=== PATIENT | female | born 1975 | race Caucasian/White ===

== ENCOUNTER 2017-02-16 13:58 | Outpatient (CLI) | payer OTHER | END 2017-02-16 13:59 | disposition home or self-care (01) | DX: G47.30 Sleep apnea, unspecified (principal); G47.8 Other sleep disorders; R06.83 Snoring; G47.10 Hypersomnia, unspecified ==

== ENCOUNTER 2017-03-11 06:50 | Outpatient (CLI) | payer OTHER | END 2017-03-11 06:51 | disposition home or self-care (01) | LOC: SC 06:50 | PROVIDERS: ATTEND Internal Medicine Pulmonary Disease | DX: G47.33 Obstructive sleep apnea (adult) (pediatric) (principal); Z68.36 Body mass index [BMI] 36.0-36.9, adult | CPT/HCPCS: 95810 ==

== ENCOUNTER 2017-03-29 09:24 | Outpatient (CLI) | payer OTHER | END 2017-03-29 09:25 | disposition home or self-care (01) | DX: G47.33 Obstructive sleep apnea (adult) (pediatric) (principal) ==

== ENCOUNTER 2017-04-15 07:00 | Outpatient (CLI) | payer OTHER | END 2017-04-15 07:01 | disposition home or self-care (01) | LOC: SC 07:00 | PROVIDERS: ATTEND Internal Medicine Pulmonary Disease | DX: G47.33 Obstructive sleep apnea (adult) (pediatric) (principal); G47.61 Periodic limb movement disorder; Z68.36 Body mass index [BMI] 36.0-36.9, adult | CPT/HCPCS: 95811 ==

== ENCOUNTER 2017-04-27 14:44 | Outpatient (CLI) | payer OTHER | END 2017-04-27 14:45 | disposition home or self-care (01) | LOC: SC 14:44 | PROVIDERS: ATTEND Nurse Practitioner Family | DX: G47.33 Obstructive sleep apnea (adult) (pediatric) (principal); G47.61 Periodic limb movement disorder | CPT/HCPCS: 99212; 99214 ==

== ENCOUNTER 2017-06-09 15:03 | Outpatient (CLI) | payer OTHER | END 2017-06-09 15:04 | disposition home or self-care (01) | LOC: SC 15:03 | PROVIDERS: ATTEND Nurse Practitioner Family | DX: G47.33 Obstructive sleep apnea (adult) (pediatric) (principal); G47.23 Circadian rhythm sleep disorder, irregular sleep wake type | CPT/HCPCS: 99212; 99214 ==

== ENCOUNTER 2017-07-28 13:46 | Outpatient (CLI) | payer OTHER | END 2017-07-28 13:47 | disposition home or self-care (01) | LOC: SC 13:46 | PROVIDERS: ATTEND Nurse Practitioner Family | DX: G47.33 Obstructive sleep apnea (adult) (pediatric) (principal) | CPT/HCPCS: 99212; 99214 ==

== ENCOUNTER 2017-10-05 14:11 | Outpatient (CLI) | payer OTHER | END 2017-10-05 14:12 | disposition home or self-care (01) | LOC: SC 14:11 | PROVIDERS: ATTEND Nurse Practitioner Family | DX: G47.33 Obstructive sleep apnea (adult) (pediatric) (principal); G47.23 Circadian rhythm sleep disorder, irregular sleep wake type | CPT/HCPCS: 99212; 99214 ==

== ENCOUNTER 2019-12-05 10:36 | Outpatient (CLI) | payer OTHER ==
--- NOTE | 2019-12-05 13:10 | Ultrasound Report ---
Reason: ABNORMAL MAMMO Procedure Date: 12/05/2019 Accession Number: [id number] / [id number] Procedure: US - Breast Unilateral Limited CPT Code: Final Report FULL RESULT: EXAM: Diagnostic Dig RT, Breast Unilateral Limited DATE: 12/05/2019 11:51 AM CLINICAL HISTORY: Follow-up abnormal mammogram 03/06/2019 and 02/10/2019. Patient has a history of bilateral reduction mammoplasty. COMPARISON: 06/07/2018 mammogram and 03/06/2019 breast ultrasound. Imaging performed at the [facility] in [place] MAMMOGRAM: TECHNIQUE: (B) - Bilateral CC and MLO views were obtained. PARENCHYMAL PATTERN: (A) - The breasts demonstrate scattered fibroglandular densities bilaterally. FINDINGS: No significant interval change. Previously seen asymmetric density mid posterior right breast anterior to the chest wall in the retroareolar plane is again best seen on the CC projection, stable appearance. There are no suspicious masses, calcifications, or areas of distortion. RIGHT BREAST ULTRASOUND: TECHNIQUE: Real time scanning by the underwriting technician with saved static images reviewed. FINDINGS: An area of probable focal scarring 7:00 position 8 cm from the nipple anterior to the chest wall has not changed in ultrasound appearance since 03/06/2019. IMPRESSION: Benign findings. BI-RADS category 2. Right breast RECOMMENDATION: (ANNUAL) - Recommend routine annual screening mammography. Return to routine screening mammography in 6 months. BI-RADS CATEGORY: (2) - Benign Findings. STANDARD QUALIFYING STATEMENTS: 1. This examination was not reviewed with the aid of Computer-Aided Detection (CAD). 2. A negative or benign imaging report should not preclude biopsy if clinically suspicious findings are present. 3. Dense breasts may obscure an underlying neoplasm. 4. This examination was reviewed with the aid of 3D breast imaging (tomosynthesis).
== END 2019-12-05 10:37 | disposition home or self-care (01) ==
LOC: DI 10:36
PROVIDERS: ATTEND General Practice
DX: R92.8 Other abnormal and inconclusive findings on diagnostic imaging of breast (principal)
CPT/HCPCS: 76642

== ENCOUNTER 2022-01-29 08:59 | Outpatient (CLI) | payer OTHER | END 2022-01-29 09:00 | disposition home or self-care (01) | LOC: DI 08:59 | PROVIDERS: ATTEND Physician Assistant | DX: F45.22 Body dysmorphic disorder (principal); I51.7 Cardiomegaly | CPT/HCPCS: 93306 ==

== ENCOUNTER 2022-02-27 10:52 | Outpatient (CLI) | payer OTHER ==
--- NOTE | 2022-02-27 11:51 | SLEEP CARE CONSULTATION ---
Information from patient questionnaire entered by Broderick Maier MA. I have reviewed and concur with the information entered by Broderick Maier MA. This document represents the service I personally performed and the decisions made by , Hanna Rowland ARNP. History of Present Illness Service Date and Time: 02/27/2022 1052 Reason for Visit: New patient (LAST SEEN 2017, ON CPAP, ) Chief Complaint: reports: Unrefreshed sleep, Snoring, Excessive daytime sleepin ess, Observed pauses in breathing, Fatigue, Frequent awakenings at night Date of Onset: life Usual bedtime: no regular bedtime Time it takes to fall asleep: not sure Snores at night: Yes Observed to quit breathing while asleep: Yes Sleeps alone due to snoring: Yes Number of times waking at night: 3-4 times Reasons for waking at night: reports: Other (unknown reason) Toss, Turn, or Twitch while sleeping: Yes Recalls having dreams: Yes Usually gets out of bed at: varies Feels refreshed in the morning: No Morning headache: No Sleepy or fatigued during the day: Yes Ever fallen asleep while driving: Yes Takes day naps: Yes Dreams during day naps: Yes Prior sleep studies: Yes Year and Where: 2016 [facility] Type of Sleep Study: Polysomnography Additional HPI information: KENDRA DONNELLY was previously diagnosed to have mild, AHI 5.3, obstructive sleep apnea-hypopnea syndrome and comes in today to re-establish care for CPAP therapy. - Parasomnia Symptoms Ever been unable to move upon waking from sleep: Yes Walks in sleep: No Talks in sleep: Yes Ever acted out dreams in sleep: No Ever felt weak in the knees when startled or emotional: No Bothered by creepy, crawly, restless sensations in legs: Yes Problems with memory or concentration: Yes CPAP Compliance Data - Data Reviewed with Patient Compliance rate %: 0 (in last 30 days) Current pressure setting (cmH2O): 9.0 Average residual AHI: 1.2 Compliance data discussion: Patient has a Dreamstation that is on the recall. She has not been using it since 04/2021. She uses a full face mask. She used to use [facility] for her supplies but does not like them. Subjective Patient concerns: denies: aerophagia, mask discomfort, air blowing in eyes, mask leak noise, condensation in mask/hose, nasal congestion, dry mouth, nose, throat, epistaxis, other Observed to snore while using device: No Current pressure setting perceived as: comfortable On therapy, patient: reports: sleeping better, awakening more refreshed, being more awake and alert during the day, more rested overall, other (reduces RLS). denies: drowsiness while driving Initial [place] Sleepiness Scale score: 20 (2021) Past Medical History Past Medical History: reports: Diabetes (no longer diabetic- A1c back in normal range), Hypothyroidism, Anxiety, Depression, GERD, Attention deficit Social History The patient's occupation is a NOT EMPLOYED. Patient is and lives in [place]. Have you smoked in the past 12 months: No Alcohol use: Yes Alcohol amount and frequency: once a year, maybe Caffeine use: Yes Caffeine amount and frequency: 6 cans soda, daily Family History Family history of sleep disordered breathing: Yes Family Hx Sleep Apnea: Mother: Snoring, Sleep apnea - Untreated Allergies and Home Medications Drug allergies reviewed: Yes (Penicillin) Home medication list reviewed: Yes Allergy and home medication list: Medications: Zoloft 200 mg Synthroid 175 mcg Nexium 20 mg Claritin 10 mg Adderall ER 15 mg Review of Systems Weight loss over past 5 years: 33 lb loss; walking since mother to deal with depression Respiratory: reports: shortness of breath, wheeze, sputum production Urinary: reports: frequency Neurological: reports: gait or balance problems Psychiatric: reports: Attention Deficit Hyperactivity, anxiety, depression Ear/Nose/Throat: reports: nasal congestion, sinus problems, dry mouth/throat Endocrine: reports: thyroid disease, sluggishness, too hot or cold, increased urination Musculoskeletal: reports: joint pain, neck pain, back pain, joint swelling, muscle pain or cramping Immunologic: reports: rash, itching Physical Exam Vital signs obtained and entered by: ARIK GREENE Blood Pressure: 133/79 (RESP 16, PULSE 67, RIGHT,) Cuff size: wrist Heart Rate: 68 O2 Saturation: 97 (CLOTH) Height: 5 ft 6 in Weight: 192 lb Weight change since last visit: LOST 32 LBS, WALKING 10,000 7 DAYS, AFTER THE PASSING OF HER MOM. Body Mass Index: 30.9 BMI Classification: Obese Neck circumference: 16.5 Heart: regular rate and rhythm Lungs: clear bilaterally Impression and Plan 1. Obstructive Sleep Apnea-Hypopnea Syndrome, mild, with poor treatment compliance and good apnea control. On CPAP therapy, the patient has better sleep quality and is more rested overall. Patient has a Dreamstation that she has not been using because of the recall. She is eligible for a new device. Since the patients current machine is at least 5 years old, the patient is opting to update their device with a device that is not on the recall. Thus, the CPAP will be updated. A DWO prescription will be made. Compliance guidelines for new device and follow up discussed. Patient voiced understanding and agreement with plan. Patient no longer has a DME supplier. I will have my patient assessment coordinator inform of DME options. A DWO prescription will then be made. Patient's apnea severity and rationale for treatment to reduce apnea, improve sleep quality and reduce cardiovascular and cerebrovascular events was reviewed. I also reviewed the benefit of consistent device use of CPAP for gastric reflux, depression and anxiety. 2. Obesity, unspecified. Patient has lost weight. Currently patients BMI is 30.9. Obesity increases the risk of apnea, CPAP pressure requirements and overall health risks especially cardiovascular and diabetes. Thus patient is advised to continue to try to lose weight. * Continue auto CPAP pressure at 9.0 cmH2O * Transfer DME * Update device * Update supplies * Notify me if snoring with mask or feeling that the pressure is too much or too little * Continue to try to lose weight * Call this office if any problems using CPAP * Return for follow up one month after obtaining new device, or sooner if concerns arise Counseling Topics: Weight loss health impact Visit Type: In Office Time Spent with Patient (minutes): 33 Provider Statement: I spent 100% of the Face to Face Visit with the patient with greater than 50% spent counseling the patient and coordination of care.
[2022-02-27 11:54] VITALS: BP 133/79
== END 2022-02-27 10:53 | disposition home or self-care (01) ==
LOC: SC 10:52
PROVIDERS: ATTEND Nurse Practitioner Family
DX: G47.33 Obstructive sleep apnea (adult) (pediatric) (principal); E66.9 Obesity, unspecified; Z68.30 Body mass index [BMI] 30.0-30.9, adult
CPT/HCPCS: 99203; 99212